=== PATIENT | male | born 1955 | race Two or more races ===

== ENCOUNTER → 2016-08-23 | Outpatient (CLI) | payer BC | END | disposition home or self-care (01) | LOC: Rad HDHVI 10:46 | PROVIDERS: ATTEND Internal Medicine Cardiovascular Disease | DX: R07.9 Chest pain, unspecified (principal) | CPT/HCPCS: 93306 ==

== ENCOUNTER → 2016-08-30 | Outpatient (CLI) | payer BC ==
[~2016-08-30] MED LIST: ADENOSINE 105 MG in GIVE UN-DILUTED 0 ML IV ONE; ADENOSINE 90 MG/30 ML INJ IV ONE
== END | disposition home or self-care (01) ==
LOC: Rad HDHVI 10:25
PROVIDERS: ATTEND Internal Medicine Cardiovascular Disease
DX: I25.10 Atherosclerotic heart disease of native coronary artery without angina pectoris (principal); I10 Essential (primary) hypertension; E78.00 Pure hypercholesterolemia, unspecified; Z82.49 Family history of ischemic heart disease and other diseases of the circulatory system
CPT/HCPCS: 78452; 93005; 96374; 96375; A9500; J0153

== ENCOUNTER 2017-12-30 22:58 | Inpatient (IN) | payer BC ==
[~2017-12-30] VITALS: Ht 175.3 cm; Wt 126.0 kg
[2017-12-30 23:35] LABS: Basophils # (auto) 0 uL; Basophils % (auto) 0.4 % (0.0-2.0); Eosinophils # (auto) 0.3 uL; Eosinophils % (auto) 3.7 % (0.0-7.0); Hematocrit 40.5 % (41.0-53.0); Hemoglobin 13.5 g/dL (13.5-17.5); Lymphocytes # (auto) 1.7 uL; Lymphocytes % (auto) 19.2 % (10.0-50.0); Mean Corpuscular Hemoglobin 30.1 pg (28.0-32.0); Mean Corpuscular Hgb Conc. 33.5 g/dL (32.0-36.0); Monocytes # (auto) 0.6 uL; Monocytes % (auto) 6.1 % (0.0-12.0); Neutrophils # (auto) 6.4 uL; Neutrophils % (auto) 70.6 % (37.0-80.0); Platelet Count (auto) 218 10^3/uL (140-450); Red Cell Distribution Width 15.7 % (11.8-14.3); White Blood Cell 9.1 10^3/uL (4.4-10.8)
[2017-12-30 23:52] LABS: Alanine Aminotransferase 20 U/L (16-61); Albumin 3.2 g/dL (3.4-5.0); Anion Gap 9 (5-15); Aspartate Aminotransferase 14 U/L (15-37); BUN/Creatinine Ratio 16.9; Blood Urea Nitrogen 20 mg/dL (7-18); Calcium 8.1 mg/dL (8.5-10.1); Carbon Dioxide 25 mmol/L (21-32); Chloride 108 mmol/L (98-107); GFR African American 80 mL/min; GFR Non-African American 66 mL/min; Glucose 120 mg/dL (74-106); Magnesium 2.1 mg/dL (1.6-2.6); Potassium 3.7 mmol/L (3.5-5.1); Sodium 142 mmol/L (136-145)
[2017-12-30 23:57] LABS: Alkaline Phosphatase 98 U/L (45-117); Bilirubin, Total 0.3 mg/dL (0.2-1.0); Total Protein 6.9 g/dL (6.4-8.2)
[2017-12-31] MEDS ORDERED: TAMS1CAP25 PO (01:11)
[2017-12-31] MEDS ORDERED: CLOP75TA41 PO (01:11)
[2017-12-31] MEDS ORDERED: ASPI81TA27 PO (01:11)
[2017-12-31] MEDS ORDERED: LISI-646 PO (01:11)
[2017-12-31] MEDS ORDERED: CHOL1TAB22 PO (01:11)
[2017-12-31] MEDS ORDERED: ATOR10TA52 PO (01:11)
[2017-12-31] MEDS ORDERED: METO25TA62 PO (01:11)
[2017-12-31] MEDS ORDERED: ALBUTEROL SULF 2.5 MG/0.5ML(0.5%) NEB SOLN ONE (02:05)
[2017-12-31 02:20] VITALS: BP 121/54
[2017-12-31] MEDS ORDERED: NITROGLYCERIN 0.4 MG SL TAB SL ONE (04:14)
[2017-12-31 04:20] VITALS: BP 121/54
[2017-12-31] MEDS ORDERED: NITROGLYCERIN 0.4 MG SL TAB SL PRN (04:30)
[2017-12-31 09:00] VITALS: BP 118/70
[2017-12-31] MEDS ORDERED: INFLUENZA QUAD 2018-2019 0.5 ML SYRG IM ONE (09:30)
[2017-12-31] MEDS: CHOLECALCIFEROL (VITD3) 1,000 UNIT TAB PO SCH (09:48)
[2017-12-31] MEDS: CLOPIDOGREL BISULFATE 75 MG TAB PO SCH (09:49)
[2017-12-31] MEDS: ASPirin 81 mg TAB PO SCH (09:49)
[2017-12-31] MEDS: LISINOPRIL 20 MG TAB PO SCH (09:49)
[2017-12-31] MEDS: ENOXAPARIN SOD 120 MG/0.8 ML SYRINGE SC SCH ×2 (09:50→21:28)
[2017-12-31] MEDS: METOPROLOL SUCCINATE XL 50 MG TAB PO SCH (09:50)
[2017-12-31 13:00] VITALS: BP 139/88
[2017-12-31] MEDS ORDERED: IOHEXOL 350 MG/ML 100ML IJ ONE (15:25)
[2017-12-31 17:00] VITALS: BP 130/60
[2017-12-31 22:00] VITALS: BP 127/73
[2017-12-31] MEDS ORDERED: ATORVASTATIN 20 MG TAB PO SCH (22:00)
[2017-12-31] MEDS ORDERED: TAMSULOSIN HYDROCHLORIDE 0.4 MG CAP PO SCH (22:00)
[2018-01-01 04:44] VITALS: BP 97/70
[2018-01-01 07:44] VITALS: BP 118/72
[2018-01-01 08:59] VITALS: BP 118/72
[2018-01-01] MEDS: LISINOPRIL 20 MG TAB PO SCH (10:00)
[2018-01-01] MEDS: METOPROLOL SUCCINATE XL 50 MG TAB PO SCH (10:00)
[2018-01-01] MEDS: CHOLECALCIFEROL (VITD3) 1,000 UNIT TAB PO SCH (10:16)
[2018-01-01] MEDS: CLOPIDOGREL BISULFATE 75 MG TAB PO SCH (10:16)
[2018-01-01] MEDS: ENOXAPARIN SOD 120 MG/0.8 ML SYRINGE SC SCH (10:17)
[2018-01-01] MEDS: ASPirin 81 mg TAB PO SCH (10:17)
[2018-01-01 13:00] VITALS: BP 127/80
[2018-01-01 15:13] VITALS: BP 127/80
== END 2018-01-01 16:22 | disposition home or self-care (01) | DRG 303 ==
LOC: ER 22:58 → TELE 22:59 → TELE-WESTW 12-31 02:42
PROVIDERS: ADMIT Internal Medicine Cardiovascular Disease; ATTEND Internal Medicine Cardiovascular Disease
DX: I25.110 Atherosclerotic heart disease of native coronary artery with unstable angina pectoris (principal); E78.00 Pure hypercholesterolemia, unspecified; E78.5 Hyperlipidemia, unspecified; I10 Essential (primary) hypertension; N28.9 Disorder of kidney and ureter, unspecified; Z95.5 Presence of coronary angioplasty implant and graft; Z88.5 Allergy status to narcotic agent; Z91.09 Other allergy status, other than to drugs and biological substances; Z90.49 Acquired absence of other specified parts of digestive tract
CPT/HCPCS: 36415; 71045; 71275; 80053; 83735; 83880; 84484; 85025; 90674; 99291

== ENCOUNTER → 2018-09-04 | Outpatient (CLI) | payer BC ==
[~2018-09-04] VITALS: Ht 165.1 cm; Wt 12.8 kg
[~2018-09-04] MED LIST changes: -ADENOSINE 105 MG in GIVE UN-DILUTED 0 ML IV ONE; -ADENOSINE 90 MG/30 ML INJ IV ONE; +ASPI81TA27 PO; +ATOR10TA52 PO; +CHOL1TAB22 PO; +CLOP75TA41 PO; +LISI-646 PO; +METO25TA62 PO; +TAMS1CAP25 PO
== END | disposition home or self-care (01) ==
LOC: Rad HDHVI 07:49
PROVIDERS: ATTEND Internal Medicine Cardiovascular Disease
DX: I08.1 Rheumatic disorders of both mitral and tricuspid valves (principal); I25.10 Atherosclerotic heart disease of native coronary artery without angina pectoris; I10 Essential (primary) hypertension; I27.20 Pulmonary hypertension, unspecified; E78.5 Hyperlipidemia, unspecified; R06.2 Wheezing; Z95.820 Peripheral vascular angioplasty status with implants and grafts
CPT/HCPCS: 78452; 93017; 93306; 96374; A9500

== ENCOUNTER → 2019-03-12 | Outpatient (CLI) | payer MEDICARE ==
[~2019-03-12] MED LIST changes: +ASPI-404 PO; -ASPI81TA27 PO; +LEVO500T21 PO; -METO25TA62 PO; +METO25TA93 PO; +OME20T PO; +OXYB5TAB61 PO
== END | disposition home or self-care (01) ==
LOC: Rad HDHVI 14:46
PROVIDERS: ATTEND Internal Medicine Cardiovascular Disease
DX: I25.10 Atherosclerotic heart disease of native coronary artery without angina pectoris (principal); R07.89 Other chest pain
CPT/HCPCS: 93306

== ENCOUNTER → 2019-09-11 | Outpatient (CLI) | payer MEDICARE ==
[2019-09-11 12:26] LABS: Basophils # (auto) 0.1 10 ^3/uL (0-0.2); Basophils % (auto) 0.7 % (0.0-2.0); Eosinophils # (auto) 0.3 10 ^3/uL (0-0.8); Eosinophils % (auto) 3.5 % (0.0-7.0); Hematocrit 43.7 % (41.0-53.0); Hemoglobin 14.2 g/dL (13.5-17.5); Lymphocytes # (auto) 1.5 10 ^3/uL (0.4-5.4); Lymphocytes % (auto) 17.8 % (10.0-50.0); Mean Corpuscular Hemoglobin 30.2 pg (28.0-32.0); Mean Corpuscular Hgb Conc. 32.6 g/dL (32.0-36.0); Mean Corpuscular Volume 92.7 fL (80.0-100.0); Monocytes # (auto) 0.6 10 ^3/uL (0-1.3); Monocytes % (auto) 7.5 % (0.0-12.0); Neutrophils # (auto) 5.8 10 ^3/uL (1.6-8.6); Neutrophils % (auto) 70.5 % (37.0-80.0); Nucleated Red Blood Cells % 0.1 %; Platelet Count (auto) 224 10^3/uL (140-450); Red Blood Cells 4.71 10^6/uL (4.5-5.90); Red Cell Distribution Width 17.6 % (11.8-14.3); Urine Blood Negative /uL (Negative); Urine Specific Gravity 1.019 (1.001-1.035); White Blood Cell 8.2 10^3/uL (4.4-10.8)
[2019-09-11 12:42] LABS: Albumin 3.2 g/dL (3.4-5.0); BUN/Creatinine Ratio 21.4; Calcium 8.2 mg/dL (8.5-10.1); Potassium 4.2 mmol/L (3.5-5.1)
[2019-09-11 12:46] LABS: Bilirubin, Total 0.3 mg/dL (0.2-1.0); Total Protein 6.8 g/dL (6.4-8.2)
[2019-09-11 12:47] LABS: Free T4 (Free Thyroxine) 0.89 ng/dL (0.89-1.76); Prostate Specific Antigen 0.89 ng/mL (0.0-4.0)
== END | disposition home or self-care (01) ==
LOC: LAB 08:14
PROVIDERS: ATTEND Internal Medicine Cardiovascular Disease
DX: E03.9 Hypothyroidism, unspecified (principal); K90.9 Intestinal malabsorption, unspecified; C61 Malignant neoplasm of prostate; E29.1 Testicular hypofunction; N39.0 Urinary tract infection, site not specified; D51.9 Vitamin B12 deficiency anemia, unspecified; Z00.00 Encounter for general adult medical examination without abnormal findings; Z79.899 Other long term (current) drug therapy
CPT/HCPCS: 36415; 80053; 80061; 81003; 82306; 82607; 83036; 84153; 84403; 84439; 84443; 85025

== ENCOUNTER → 2019-10-03 | Outpatient (CLI) | payer MEDICARE ==
[~2019-10-03] VITALS: Ht 180.3 cm; Wt 125.2 kg
[~2019-10-03] MED LIST changes: -ASPI-404 PO; +ASPI-543 PO
== END | disposition home or self-care (01) ==
LOC: Rad HDHVI 08:25
PROVIDERS: ATTEND Internal Medicine Cardiovascular Disease
DX: I25.10 Atherosclerotic heart disease of native coronary artery without angina pectoris (principal); I10 Essential (primary) hypertension; E78.00 Pure hypercholesterolemia, unspecified; Z82.49 Family history of ischemic heart disease and other diseases of the circulatory system
CPT/HCPCS: 78452; 93017; 96374; A9500

== ENCOUNTER → 2020-04-27 | Outpatient (CLI) | payer MEDICARE ==
[~2020-04-27] MED LIST changes: -CLOP75TA41 PO; +CLOP75TA70 PO; -LEVO500T21 PO; +LEVO500T31 PO
[2020-04-27 11:31] LABS: Basophils # (auto) 0 10 ^3/uL (0-0.2); Basophils % (auto) 0.5 % (0.0-2.0); Eosinophils # (auto) 0.2 10 ^3/uL (0-0.8); Eosinophils % (auto) 2.4 % (0.0-7.0); Hematocrit 45.6 % (41.0-53.0); Hemoglobin 15.5 g/dL (13.5-17.5); Lymphocytes # (auto) 1.3 10 ^3/uL (0.4-5.4); Lymphocytes % (auto) 15.7 % (10.0-50.0); Mean Corpuscular Hemoglobin 30.9 pg (28.0-32.0); Mean Corpuscular Volume 90.9 fL (80.0-100.0); Monocytes # (auto) 0.5 10 ^3/uL (0-1.3); Monocytes % (auto) 5.7 % (0.0-12.0); Neutrophils # (auto) 6.4 10 ^3/uL (1.6-8.6); Neutrophils % (auto) 75.7 % (37.0-80.0); Nucleated Red Blood Cells % 0.1 %; Platelet Count (auto) 255 10^3/uL (140-450); Red Blood Cells 5.01 10^6/uL (4.5-5.90); Red Cell Distribution Width 15.9 % (11.8-14.3); White Blood Cell 8.5 10^3/uL (4.4-10.8)
[2020-04-27 11:41] LABS: Urine Blood Negative /uL (Negative); Urine Specific Gravity 1.023 (1.001-1.035)
[2020-04-27 11:46] LABS: Potassium 4.1 mmol/L (3.5-5.1)
[2020-04-27 11:49] LABS: Free T4 (Free Thyroxine) 0.94 ng/dL (0.89-1.76); Prostate Specific Antigen 1.62 ng/mL (0.0-4.0)
[2020-04-27 11:57] LABS: Albumin 3.4 g/dL (3.4-5.0); BUN/Creatinine Ratio 17.5; Bilirubin, Total 0.5 mg/dL (0.2-1.0); Calcium 8.6 mg/dL (8.5-10.1); Total Protein 7.6 g/dL (6.4-8.2)
== END | disposition home or self-care (01) ==
LOC: LAB 09:16
PROVIDERS: ATTEND Internal Medicine Cardiovascular Disease
DX: C61 Malignant neoplasm of prostate (principal); D51.3 Other dietary vitamin B12 deficiency anemia; I10 Essential (primary) hypertension; E11.9 Type 2 diabetes mellitus without complications; E55.9 Vitamin D deficiency, unspecified; D64.9 Anemia, unspecified; R00.2 Palpitations; R53.1 Weakness; R30.0 Dysuria
CPT/HCPCS: 36415; 80053; 80061; 81003; 82306; 82607; 83036; 84153; 84403; 84439; 84443; 85025

== ENCOUNTER → 2020-10-19 | Outpatient (CLI) | payer MEDICARE ==
[~2020-10-19] MED LIST changes: -LISI-646 PO; +LISI20TA28 PO
== END | disposition home or self-care (01) ==
LOC: Rad HDHVI 12:54
PROVIDERS: ATTEND Internal Medicine Cardiovascular Disease
DX: R00.2 Palpitations (principal); R06.02 Shortness of breath
CPT/HCPCS: 93306

== ENCOUNTER 2023-03-29 12:52 | Inpatient (IN) | payer MEDICARE ==
[~2023-03-29] VITALS: Ht 180.3 cm; Wt 125.8 kg
[~2023-03-29 12:52] MED LIST changes: -LISI20TA28 PO; +LISI20TA56 PO; +OXYB5TAB10 PO; -OXYB5TAB61 PO
[2023-03-29 14:28] LABS: Basophils # (auto) 0.1 10 ^3/uL (0-0.2); Basophils % (auto) 0.6 % (0.0-2.0); Eosinophils # (auto) 0.1 10 ^3/uL (0-0.8); Hematocrit 45.1 % (41.0-53.0); Hemoglobin 14.7 g/dL (13.5-17.5); Lymphocytes # (auto) 0.9 10 ^3/uL (0.4-5.4); Lymphocytes % (auto) 9.6 % (10.0-50.0); Mean Corpuscular Hemoglobin 29.6 pg (28.0-32.0); Mean Corpuscular Hgb Conc. 32.5 g/dL (32.0-36.0); Monocytes # (auto) 0.7 10 ^3/uL (0-1.3); Monocytes % (auto) 7.3 % (0.0-12.0); Neutrophils # (auto) 7.8 10 ^3/uL (1.6-8.6); Neutrophils % (auto) 81.5 % (37.0-80.0); Nucleated Red Blood Cells % 0.1 %; Red Blood Cells 4.96 10^6/uL (4.5-5.90); White Blood Cell 9.6 10^3/uL (4.4-10.8)
[2023-03-29 14:33] LABS: Alanine Aminotransferase 157 U/L (7-40); Albumin 4.3 g/dL (3.2-4.8); Alkaline Phosphatase 149 U/L (46-116); Anion Gap 7 (5-15); Aspartate Aminotransferase 266 U/L (13-40); BUN/Creatinine Ratio 15.2 (10.0-20.0); Blood Urea Nitrogen 19 mg/dL (9-23); Carbon Dioxide 28 mmol/L (20-30); Chloride 106 mmol/L (98-107); Glucose 116 mg/dL (74-106); Lipase 34 U/L (12-53); Potassium 3.9 mmol/L (3.5-5.1); Sodium 141 mmol/L (136-145)
[2023-03-29 14:34] LABS: Bilirubin, Total 1.8 mg/dL (0.2-1.0); Total Protein 6.7 g/dL (5.7-8.2)
[2023-03-29] MEDS ORDERED: METOCLOPRAMIDE HCL 5MG/ml INJ 2ml VIAL IV ONE (17:00)
[2023-03-29] MEDS ORDERED: KETOROLAC TROMETH 30 MG/ML 1ML VIAL IV ONE (17:00)
[2023-03-29] MEDS ORDERED: IOHEXOL 300 MG/ML 100ML BOTTLE IJ ONE (17:20)
[2023-03-29] MEDS ORDERED: KETOROLAC TROMETH 30 MG/ML 1ML VIAL IV PRN (18:30)
[2023-03-29] MEDS ORDERED: ONDANSETRON HCL 4 MG/2 ML VIAL IV PRN (18:30)
[2023-03-29] MEDS ORDERED: ACETAMINOPHEN 325 MG TAB PO PRN (18:30)
[2023-03-29] MEDS ORDERED: HYDROcodone-ACET 5/325MG TAB PO PRN (18:30)
[2023-03-29 19:43] LABS: Triglycerides 113 mg/dL (< 150)
[2023-03-29 19:44] LABS: LDL Cholesterol 127 mg/dL (< 100)
[2023-03-29 19:45] LABS: Cholesterol 189 mg/dL (< 200); HDL Cholesterol 48 mg/dL (40-59)
[2023-03-29 19:56] VITALS: PULSE 80; RESP 18; O2SAT 92
[2023-03-29 20:37] LABS: Urine Bacteria FEW /hpf (None Seen); Urine Blood Negative /uL (Negative); Urine Clarity Clear (Clear); Urine Color Yellow (Yellow); Urine Mucus FEW (None Seen); Urine Protein, UAD 1+ (Negative); Urine WBC 10 /hpf (0 - 3)
[2023-03-29 20:40] LABS: Urine Specific Gravity > 1.050 (1.001-1.035)
[2023-03-29] MEDS: SODIUM CHLORIDE 0.9% 1,000 ML IV SCH (20:54)
[2023-03-29] MEDS: OXYBUTYNIN CHL 5 MG TAB PO SCH (22:21)
[2023-03-29] MEDS: TAMSULOSIN HYDROCHLORIDE 0.4 MG CAP PO SCH (22:21)
[2023-03-29] MEDS: ATORVASTATIN 20 MG TAB PO SCH (22:21)
[2023-03-30] VITALS (9 sets, daily range): BP systolic 115–130; BP diastolic 62–83; PULSE 72–121; RESP 14–20; TEMP 98–102.1; O2SAT 90–97
[2023-03-30] MEDS ORDERED: TRIA75TA55 PO (01:07)
[2023-03-30] MEDS ORDERED: OMEP20TA85 PO (01:07)
[2023-03-30] MEDS ORDERED: FLUT250M2 INH (01:10)
[2023-03-30] MEDS ORDERED: MONT5CHW12 PO (01:11)
[2023-03-30] MEDS ORDERED: ALBU2TAB11 PO (01:11)
[2023-03-30 05:50] LABS: Basophils # (auto) 0 10 ^3/uL (0-0.2); Basophils % (auto) 0.4 % (0.0-2.0); Eosinophils # (auto) 0.2 10 ^3/uL (0-0.8); Eosinophils % (auto) 2.8 % (0.0-7.0); Hematocrit 42.2 % (41.0-53.0); Hemoglobin 13.9 g/dL (13.5-17.5); Lymphocytes # (auto) 0.8 10 ^3/uL (0.4-5.4); Lymphocytes % (auto) 10.8 % (10.0-50.0); Mean Corpuscular Hgb Conc. 32.9 g/dL (32.0-36.0); Monocytes # (auto) 0.6 10 ^3/uL (0-1.3); Monocytes % (auto) 8.9 % (0.0-12.0); Neutrophils # (auto) 5.4 10 ^3/uL (1.6-8.6); Neutrophils % (auto) 77.1 % (37.0-80.0); Red Blood Cells 4.64 10^6/uL (4.5-5.90); Red Cell Distribution Width 15.6 % (11.8-14.3)
[2023-03-30 06:05] LABS: Alanine Aminotransferase 275 U/L (7-40); Alkaline Phosphatase 153 U/L (46-116); Anion Gap 7 (5-15); BUN/Creatinine Ratio 10.4 (10.0-20.0); Blood Urea Nitrogen 13 mg/dL (9-23); Calcium 8.8 mg/dL (8.7-10.4); Carbon Dioxide 27 mmol/L (20-30); Chloride 106 mmol/L (98-107); Glucose 102 mg/dL (74-106); Potassium 3.7 mmol/L (3.5-5.1); Sodium 140 mmol/L (136-145)
[2023-03-30 06:06] LABS: Aspartate Aminotransferase 334 U/L (13-40); Bilirubin, Total 4.1 mg/dL (0.2-1.0); Total Protein 6.4 g/dL (5.7-8.2)
[2023-03-30 09:22] LABS: Hepatitis B Surface Antigen Negative (Negative)
[2023-03-30 09:36] LABS: Hepatitis B Surface Antigen Negative (Negative)
[2023-03-30 09:43] LABS: Hepatitis A Ab IgM Negative; Hepatitis B Core IgM Negative
[2023-03-30 09:44] LABS: Hepatitis C Antibody Negative (Negative)
[2023-03-30 09:57] LABS: Hepatitis C Antibody Negative (Negative)
[2023-03-30] MEDS ORDERED: CLOPIDOGREL BISULFATE 75 MG TAB PO SCH (10:00)
[2023-03-30] MEDS: CHOLECALCIFEROL (VITD3) 1,000UNIT=25mCg TAB PO SCH (10:00)
[2023-03-30] MEDS ORDERED: LORazepam 2MG/ML-1ML VIAL IV ONE (13:00)
[2023-03-30] MEDS: OXYBUTYNIN CHL 5 MG TAB PO SCH ×2 (13:01→20:58)
[2023-03-30] MEDS: ASPirin-EC 81 mg tab PO SCH (13:01)
[2023-03-30] MEDS: METOPROLOL SUCCINATE XL 50 MG TAB PO SCH (13:02)
[2023-03-30] MEDS: LISINOPRIL 20 MG TAB PO SCH (13:03)
[2023-03-30] MEDS: cefTRIAXone 1GM/50ML D5W 50 ML IV SCH (13:03)
[2023-03-30] MEDS: ENOXAPARIN SOD 40 MG/0.4 ML SYRINGE SC SCH (13:03)
[2023-03-30] MEDS: OMEPRAZOLE-SOD BICARB 20 MG POWDER PO SCH (13:06)
[2023-03-30] MEDS: SODIUM CHLORIDE 0.9% 1,000 ML IV SCH (13:19)
[2023-03-30] MEDS: TAMSULOSIN HYDROCHLORIDE 0.4 MG CAP PO SCH (20:58)
[2023-03-30] MEDS: ATORVASTATIN 20 MG TAB PO SCH (20:59)
[2023-03-31] VITALS (7 sets, daily range): BP systolic 98–149; BP diastolic 51–83; PULSE 85–94; RESP 17–20; TEMP 98.6–99.3; O2SAT 92–96
[2023-03-31] MEDS: SODIUM CHLORIDE 0.9% 1,000 ML IV SCH (03:50)
[2023-03-31 05:25] LABS: Basophils # (auto) 0 10 ^3/uL (0-0.2); Basophils % (auto) 0.6 % (0.0-2.0); Eosinophils # (auto) 0 10 ^3/uL (0-0.8); Eosinophils % (auto) 0.3 % (0.0-7.0); Hematocrit 38.6 % (41.0-53.0); Hemoglobin 12.7 g/dL (13.5-17.5); Lymphocytes # (auto) 0.5 10 ^3/uL (0.4-5.4); Lymphocytes % (auto) 11.4 % (10.0-50.0); Mean Corpuscular Hemoglobin 29.5 pg (28.0-32.0); Mean Corpuscular Hgb Conc. 32.9 g/dL (32.0-36.0); Mean Corpuscular Volume 89.7 fL (80.0-100.0); Monocytes # (auto) 0.5 10 ^3/uL (0-1.3); Monocytes % (auto) 10.6 % (0.0-12.0); Neutrophils # (auto) 3.5 10 ^3/uL (1.6-8.6); Neutrophils % (auto) 77.1 % (37.0-80.0); Nucleated Red Blood Cells % 0.1 %; Red Blood Cells 4.31 10^6/uL (4.5-5.90); Red Cell Distribution Width 15.7 % (11.8-14.3); White Blood Cell 4.5 10^3/uL (4.4-10.8)
[2023-03-31 05:41] LABS: INR 1.13 (0.9-1.15); Partial Thromboplastin Time 34.1 SEC (24.5-34.5); Prothrombin Time 11.8 sec (9.3-11.8)
[2023-03-31 05:57] LABS: Alanine Aminotransferase 253 U/L (7-40); Albumin 3.6 g/dL (3.2-4.8); Alkaline Phosphatase 138 U/L (46-116); Anion Gap 7 (5-15); Aspartate Aminotransferase 179 U/L (13-40); BUN/Creatinine Ratio 10.6 (10.0-20.0); Bilirubin, Total 3.2 mg/dL (0.2-1.0); Blood Urea Nitrogen 13 mg/dL (9-23); Calcium 8.5 mg/dL (8.5-10.1); Carbon Dioxide 25 mmol/L (20-30); Chloride 107 mmol/L (98-107); Glucose 101 mg/dL (74-106); Potassium 3.8 mmol/L (3.5-5.1); Sodium 139 mmol/L (136-145); Total Protein 5.9 g/dL (5.7-8.2)
[2023-03-31] MEDS: LISINOPRIL 20 MG TAB PO SCH (10:00)
[2023-03-31] MEDS: CHOLECALCIFEROL (VITD3) 1,000UNIT=25mCg TAB PO SCH (10:00)
[2023-03-31] MEDS: METOPROLOL SUCCINATE XL 50 MG TAB PO SCH (10:00)
[2023-03-31] MEDS: ENOXAPARIN SOD 40 MG/0.4 ML SYRINGE SC SCH (10:10)
[2023-03-31] MEDS: ASPirin-EC 81 mg tab PO SCH (10:10)
[2023-03-31] MEDS: cefTRIAXone 1GM/50ML D5W 50 ML IV SCH (10:10)
[2023-03-31] MEDS: OXYBUTYNIN CHL 5 MG TAB PO SCH ×2 (10:11→21:13)
[2023-03-31] MEDS: D5W/SOD CHL 0.45%/KCL 20MEQ 1,000 ML IV SCH ×2 (10:30→20:30)
[2023-03-31] MEDS: OMEPRAZOLE-SOD BICARB 20 MG POWDER PO SCH (15:03)
[2023-03-31] MEDS: metroNIDAZOLE 500MG/100ML 100 ML IV SCH ×2 (15:04→21:14)
[2023-03-31] MEDS: ATORVASTATIN 20 MG TAB PO SCH (21:13)
[2023-03-31] MEDS: TAMSULOSIN HYDROCHLORIDE 0.4 MG CAP PO SCH (21:13)
[2023-04-01] VITALS (7 sets, daily range): BP systolic 112–140; BP diastolic 53–95; PULSE 72–98; RESP 16–20; TEMP 98–100.1; O2SAT 93–94
[2023-04-01] MEDS: metroNIDAZOLE 500MG/100ML 100 ML IV SCH ×3 (05:10→21:13)
[2023-04-01] MEDS: D5W/SOD CHL 0.45%/KCL 20MEQ 1,000 ML IV SCH ×2 (06:30→16:19)
[2023-04-01 06:48] LABS: Basophils # (auto) 0 10 ^3/uL (0-0.2); Basophils % (auto) 0.5 % (0.0-2.0); Eosinophils # (auto) 0.1 10 ^3/uL (0-0.8); Eosinophils % (auto) 2.3 % (0.0-7.0); Hematocrit 38.2 % (41.0-53.0); Hemoglobin 12.7 g/dL (13.5-17.5); Lymphocytes # (auto) 0.6 10 ^3/uL (0.4-5.4); Lymphocytes % (auto) 12.2 % (10.0-50.0); Mean Corpuscular Hemoglobin 29.5 pg (28.0-32.0); Mean Corpuscular Hgb Conc. 33.2 g/dL (32.0-36.0); Mean Corpuscular Volume 88.9 fL (80.0-100.0); Monocytes # (auto) 0.6 10 ^3/uL (0-1.3); Monocytes % (auto) 12.8 % (0.0-12.0); Neutrophils # (auto) 3.6 10 ^3/uL (1.6-8.6); Neutrophils % (auto) 72.2 % (37.0-80.0); Red Cell Distribution Width 15.2 % (11.8-14.3)
[2023-04-01 07:06] LABS: Alanine Aminotransferase 192 U/L (7-40); Albumin 3.6 g/dL (3.2-4.8); Alkaline Phosphatase 133 U/L (46-116); Anion Gap 8 (5-15); Aspartate Aminotransferase 117 U/L (13-40); BUN/Creatinine Ratio 9.8 (10.0-20.0); Bilirubin, Total 2.1 mg/dL (0.2-1.0); Blood Urea Nitrogen 11 mg/dL (9-23); Calcium 8.4 mg/dL (8.7-10.4); Carbon Dioxide 24 mmol/L (20-30); Chloride 107 mmol/L (98-107); Glucose 87 mg/dL (74-106); Potassium 3.9 mmol/L (3.5-5.1); Sodium 139 mmol/L (136-145)
[2023-04-01] MEDS: cefTRIAXone 1GM/50ML D5W 50 ML IV SCH (09:58)
[2023-04-01] MEDS: CHOLECALCIFEROL (VITD3) 1,000UNIT=25mCg TAB PO SCH (10:06)
[2023-04-01] MEDS: METOPROLOL SUCCINATE XL 50 MG TAB PO SCH (10:07)
[2023-04-01] MEDS: ASPirin-EC 81 mg tab PO SCH (10:08)
[2023-04-01] MEDS: OXYBUTYNIN CHL 5 MG TAB PO SCH ×2 (10:08→21:13)
[2023-04-01] MEDS: LISINOPRIL 20 MG TAB PO SCH (10:08)
[2023-04-01] MEDS: ENOXAPARIN SOD 40 MG/0.4 ML SYRINGE SC SCH (10:09)
[2023-04-01] MEDS: OMEPRAZOLE-SOD BICARB 20 MG POWDER PO SCH (10:17)
[2023-04-01] MEDS: ATORVASTATIN 20 MG TAB PO SCH (21:13)
[2023-04-01] MEDS: TAMSULOSIN HYDROCHLORIDE 0.4 MG CAP PO SCH (21:13)
[2023-04-02] MEDS: D5W/SOD CHL 0.45%/KCL 20MEQ 1,000 ML IV SCH ×2 (02:30→12:30)
[2023-04-02 05:00] VITALS: BP 140/79; PULSE 68; RESP 20; TEMP 99.1; O2SAT 96
[2023-04-02] MEDS: metroNIDAZOLE 500MG/100ML 100 ML IV SCH (05:06)
[2023-04-02 08:00] VITALS: BP 141/71; PULSE 61; RESP 19; TEMP 98; O2SAT 94
[2023-04-02 09:00] VITALS: BP 141/71; PULSE 61; RESP 19; TEMP 98; O2SAT 94
[2023-04-02] MEDS: ENOXAPARIN SOD 40 MG/0.4 ML SYRINGE SC SCH (09:23)
[2023-04-02] MEDS: LISINOPRIL 20 MG TAB PO SCH (09:24)
[2023-04-02] MEDS: ASPirin-EC 81 mg tab PO SCH (09:24)
[2023-04-02] MEDS: OXYBUTYNIN CHL 5 MG TAB PO SCH (09:25)
[2023-04-02] MEDS: CHOLECALCIFEROL (VITD3) 1,000UNIT=25mCg TAB PO SCH (09:25)
[2023-04-02] MEDS: METOPROLOL SUCCINATE XL 50 MG TAB PO SCH (09:25)
[2023-04-02] MEDS ORDERED: PANTOPRAZOLE 40 MG TAB PO SCH (10:00)
[2023-04-02] MEDS: cefTRIAXone 1GM/50ML D5W 50 ML IV SCH (10:00)
[2023-04-02 11:35] VITALS: BP 141/71; PULSE 61; RESP 19; TEMP 98; O2SAT 94
[2023-04-02 12:55] VITALS: BP 120/62; PULSE 70; RESP 18; TEMP 98; O2SAT 94
[2023-04-05] MEDS ORDERED: MAALOX PLUS or MAALOX 30 ML PO PRN (21:00)
[2023-04-05] MEDS ORDERED: DOCUSATE SOD 100 MG CAP PO PRN (21:00)
[2023-04-05] MEDS ORDERED: SODIUM CHLORIDE 0.9% 1,000 ML IV SCH (21:00)
[2023-04-05] MEDS ORDERED: LABETALOL HCL 5 MG/ML 4ML SYRINGE IV PRN (21:00)
[2023-04-05] MEDS ORDERED: ONDANSETRON HCL 4 MG/2 ML VIAL IV PRN (21:00)
[2023-04-05] MEDS ORDERED: KETOROLAC TROMETH 30 MG/ML 1ML VIAL IV PRN (21:00)
[2023-04-05] MEDS ORDERED: ACETAMINOPHEN 325 MG TAB PO PRN (21:00)
[2023-04-05] MEDS ORDERED: MONTELUKAST SODIUM 10 MG TAB PO SCH (22:00)
[2023-04-05] MEDS ORDERED: ATORVASTATIN 20 MG TAB PO SCH (22:00)
[2023-04-05] MEDS ORDERED: ALBU108A5 INH (22:51)
[2023-04-05] MEDS ORDERED: MONT-8 PO (22:51)
[2023-04-05] MEDS ORDERED: TEST30SO3 TOP (22:51)
[2023-04-05] MEDS ORDERED: PRED10TA (22:51)
[2023-04-06] MEDS ORDERED: METOPROLOL SUCCINATE XL 50 MG TAB PO SCH (10:00)
[2023-04-06] MEDS ORDERED: LISINOPRIL 20 MG TAB PO SCH (10:00)
[2023-04-10] MEDS ORDERED: AUG875T PO (13:06)
[2023-04-11] MEDS ORDERED: HYDR-4902 PO (09:58)
== END 2023-04-02 13:53 | disposition short-term general hospital (02) | DRG 446 ==
LOC: ER 12:52 → OVERFLOW 18:33 → CENTRAL 23:58
PROVIDERS: ADMIT Nurse Practitioner Family; ATTEND Nurse Practitioner Acute Care
DX: K80.50 Calculus of bile duct without cholangitis or cholecystitis without obstruction (principal); I10 Essential (primary) hypertension; E66.01 Morbid (severe) obesity due to excess calories; E78.5 Hyperlipidemia, unspecified; I25.119 Atherosclerotic heart disease of native coronary artery with unspecified angina pectoris; R74.8 Abnormal levels of other serum enzymes; R74.01 Elevation of levels of liver transaminase levels; Z68.38 Body mass index [BMI] 38.0-38.9, adult; Z88.5 Allergy status to narcotic agent; Z90.49 Acquired absence of other specified parts of digestive tract; Z91.048 Other nonmedicinal substance allergy status; Z95.5 Presence of coronary angioplasty implant and graft
CPT/HCPCS: 36415; 71046; 74177; 74181; 76705; 78226; 80053; 80061; 80074; 81001; 82248; 83690; 83735; 84443; 85025; 85610; 85730; 86803; 87040; 87077; 87186; 87340; 93005; 96374; 96375; G0378; J1885; J3490

== ENCOUNTER 2023-07-25 04:41 | Inpatient (IN) | payer MEDICARE ==
[~2023-07-25] VITALS: Ht 180.3 cm; Wt 136.1 kg
[~2023-07-25 04:41] MED LIST changes: +ALBU108A5 INH; +ALBU2TAB11 PO; +AUG875T PO; +FLUT250M2 INH; +HYDR-4902 PO; -LEVO500T31 PO; +MONT-8 PO; +MONT5CHW12 PO; -OME20T PO; +OMEP20TA85 PO; -OXYB5TAB10 PO; +PRED10TA; -TAMS1CAP25 PO; +TEST30SO3 TOP; +TRIA75TA55 PO
[2023-07-25 05:33] LABS: Basophils # (auto) 0.1 10 ^3/uL (0-0.2); Basophils % (auto) 0.4 % (0.0-2.0); Eosinophils # (auto) 0 10 ^3/uL (0-0.8); Eosinophils % (auto) 0.3 % (0.0-7.0); Hematocrit 43.2 % (41.0-53.0); Lymphocytes # (auto) 1.8 10 ^3/uL (0.4-5.4); Lymphocytes % (auto) 12.2 % (10.0-50.0); Mean Corpuscular Hemoglobin 28.2 pg (28.0-32.0); Mean Corpuscular Hgb Conc. 32.5 g/dL (32.0-36.0); Mean Corpuscular Volume 86.7 fL (80.0-100.0); Monocytes # (auto) 0.9 10 ^3/uL (0-1.3); Monocytes % (auto) 6.1 % (0.0-12.0); Neutrophils # (auto) 12.1 10 ^3/uL (1.6-8.6); Red Blood Cells 4.98 10^6/uL (4.5-5.90); Red Cell Distribution Width 16.5 % (11.8-14.3); White Blood Cell 14.9 10^3/uL (4.4-10.8)
[2023-07-25 06:03] LABS: Alanine Aminotransferase 18 U/L (7-40); Albumin 4.1 g/dL (3.2-4.8); Alkaline Phosphatase 114 U/L (46-116); Anion Gap 7 (5-15); Aspartate Aminotransferase 15 U/L (13-40); BUN/Creatinine Ratio 14.6 (10.0-20.0); Bilirubin, Total 0.3 mg/dL (0.2-1.0); Blood Urea Nitrogen 19 mg/dL (9-23); Carbon Dioxide 24 mmol/L (20-30); Chloride 110 mmol/L (98-107); Glucose 122 mg/dL (74-106); Potassium 3.9 mmol/L (3.5-5.1); Sodium 141 mmol/L (136-145); Total Protein 6.8 g/dL (5.7-8.2)
[2023-07-25 06:16] LABS: Urine Bacteria None Seen /hpf (None Seen)
[2023-07-25 06:30] VITALS: PULSE 60; RESP 20; O2SAT 96
[2023-07-25 06:33] LABS: Urine Blood 3+ /uL (Negative); Urine Budding Yeast OCCASIONAL /hpf (None Seen); Urine Clarity Turbid (Clear); Urine Color Light-Orange (Yellow); Urine Mucus FEW (None Seen); Urine Protein, UAD 1+ (Negative); Urine Urobilinogen Normal (Negative); Urine WBC 31 /hpf (0 - 3)
[2023-07-25] MEDS: ONDANSETRON HCL 4 MG/2 ML VIAL IV ONE ×2 (07:39→08:00)
[2023-07-25] MEDS: KETOROLAC TROMETH 30 MG/ML 1ML VIAL IV ONE (07:39)
[2023-07-25 07:50] VITALS: PULSE 76; RESP 18; O2SAT 96
[2023-07-25] MEDS: TAMSULOSIN HYDROCHLORIDE 0.4 MG CAP PO ONE (08:27)
[2023-07-25] MEDS: cefTRIAXone 1GM/50ML D5W 50 ML IV ONE ×2 (08:28→08:30)
[2023-07-25] MEDS: cloNIDine HCL 0.1 MG TAB PO ONE (08:28)
[2023-07-25] MEDS: MORPHINE SULFATE 4 MG/ML SYR/VIAL IV ONE (08:29)
[2023-07-25] MEDS: SODIUM CHLORIDE 0.9% 1,000 ML IV ONE ×2 (08:29→08:30)
[2023-07-25] MEDS ORDERED: ONDANSETRON HCL 4 MG/2 ML VIAL IV PRN (08:30)
[2023-07-25] MEDS: SODIUM CHLORIDE 0.9% 1,000 ML IV SCH (08:30)
[2023-07-25] MEDS ORDERED: DOCUSATE SOD 100 MG CAP PO PRN (08:30)
[2023-07-25] MEDS ORDERED: MORPHINE SULFATE INJ 2 MG/ml SYRG IV PRN (08:30)
[2023-07-25] MEDS: cefTRIAXone 1GM/50ML D5W 50 ML IV SCH (09:00)
[2023-07-25] MEDS ORDERED: ALBUTEROL SULFATE 2 MG PO PRN (09:45)
[2023-07-25] MEDS: ASPirin-EC 81 mg tab PO SCH (10:00)
[2023-07-25] MEDS: CLOPIDOGREL BISULFATE 75 MG TAB PO SCH (10:00)
[2023-07-25] MEDS: MONTELUKAST SODIUM 10 MG TAB PO SCH (10:00)
[2023-07-25] MEDS: LISINOPRIL 20 MG TAB PO SCH (10:00)
[2023-07-25] MEDS: KETOROLAC TROMETH 30 MG/ML 1ML VIAL IV SCH (12:00)
[2023-07-25 14:40] VITALS: BP 120/71; PULSE 51; RESP 18; TEMP 97.3; O2SAT 95
[2023-07-25 17:00] VITALS: BP 100/63; PULSE 59; RESP 17; TEMP 98.2; O2SAT 96
[2023-07-25] MEDS: TAMSULOSIN HYDROCHLORIDE 0.4 MG CAP PO SCH (17:46)
[2023-07-25 20:00] VITALS: RESP 20; O2SAT 96
[2023-07-25] MEDS: ATORVASTATIN 20 MG TAB PO SCH (21:10)
[2023-07-25 21:46] VITALS: BP 106/64; PULSE 56; RESP 18; TEMP 97.3; O2SAT 94
[2023-07-26 01:00] VITALS: BP 109/60; PULSE 51; RESP 18; TEMP 97.4; O2SAT 94
[2023-07-26 05:00] VITALS: BP 112/61; PULSE 62; RESP 18; TEMP 97.6; O2SAT 94
[2023-07-26 06:43] LABS: Alanine Aminotransferase 15 U/L (7-40); Albumin 3.3 g/dL (3.2-4.8); Alkaline Phosphatase 91 U/L (46-116); Anion Gap 5 (5-15); Aspartate Aminotransferase 11 U/L (13-40); BUN/Creatinine Ratio 15.3 (10.0-20.0); Bilirubin, Total 0.4 mg/dL (0.2-1.0); Blood Urea Nitrogen 17 mg/dL (9-23); Calcium 8.3 mg/dL (8.7-10.4); Carbon Dioxide 26 mmol/L (20-30); Chloride 110 mmol/L (98-107); Glucose 90 mg/dL (74-106); Potassium 4.3 mmol/L (3.5-5.1); Sodium 141 mmol/L (136-145); Total Protein 5.4 g/dL (5.7-8.2)
[2023-07-26 06:59] LABS: Basophils # (auto) 0 10 ^3/uL (0-0.2); Basophils % (auto) 0.3 % (0.0-2.0); Eosinophils # (auto) 0.3 10 ^3/uL (0-0.8); Eosinophils % (auto) 2.9 % (0.0-7.0); Hematocrit 36.5 % (41.0-53.0); Hemoglobin 11.9 g/dL (13.5-17.5); Lymphocytes # (auto) 1.3 10 ^3/uL (0.4-5.4); Lymphocytes % (auto) 14.7 % (10.0-50.0); Mean Corpuscular Hemoglobin 28.3 pg (28.0-32.0); Mean Corpuscular Hgb Conc. 32.5 g/dL (32.0-36.0); Mean Corpuscular Volume 87.1 fL (80.0-100.0); Monocytes # (auto) 0.6 10 ^3/uL (0-1.3); Monocytes % (auto) 6.5 % (0.0-12.0); Neutrophils # (auto) 6.6 10 ^3/uL (1.6-8.6); Neutrophils % (auto) 75.6 % (37.0-80.0); Nucleated Red Blood Cells % 0.1 %; Red Blood Cells 4.19 10^6/uL (4.5-5.90); Red Cell Distribution Width 16.8 % (11.8-14.3); White Blood Cell 8.7 10^3/uL (4.4-10.8)
[2023-07-26] MEDS: SODIUM CHLORIDE 0.9% 1,000 ML IV SCH (07:45)
[2023-07-26 09:13] VITALS: BP 123/68; PULSE 59; RESP 21; TEMP 98.1; O2SAT 95
[2023-07-26] MEDS: METOPROLOL SUCCINATE XL 50 MG TAB PO SCH (09:35)
[2023-07-26] MEDS: PANTOPRAZOLE 40 MG TAB PO SCH (09:36)
[2023-07-26 13:07] VITALS: BP 117/71; PULSE 57; RESP 21; TEMP 98.4; O2SAT 94
== END 2023-07-26 15:29 | disposition home or self-care (01) | DRG 872 ==
LOC: ER 04:41 → OVERFLOW 09:39 → CENTRAL 14:50
PROVIDERS: ADMIT Nurse Practitioner Family; ATTEND Family Medicine
DX: A41.9 Sepsis, unspecified organism (principal); N13.6 Pyonephrosis; I10 Essential (primary) hypertension; I25.10 Atherosclerotic heart disease of native coronary artery without angina pectoris; E78.00 Pure hypercholesterolemia, unspecified; N20.0 Calculus of kidney; Z88.5 Allergy status to narcotic agent; Z90.49 Acquired absence of other specified parts of digestive tract; I25.2 Old myocardial infarction; Z79.02 Long term (current) use of antithrombotics/antiplatelets; Z79.51 Long term (current) use of inhaled steroids; Z91.048 Other nonmedicinal substance allergy status; Z95.5 Presence of coronary angioplasty implant and graft; Z79.899 Other long term (current) drug therapy; Z83.3 Family history of diabetes mellitus; Z82.3 Family history of stroke; Z82.1 Family history of blindness and visual loss; Z84.89 Family history of other specified conditions
CPT/HCPCS: 36415; 74176; 80053; 81001; 85025; 87086; 96361; 96365; 96375; G0378; J1885; J2405

== ENCOUNTER → 2023-07-31 | Outpatient (CLI) | payer MEDICARE ==
[~2023-07-31] VITALS: Ht 180.3 cm; Wt 127.0 kg
== END | disposition home or self-care (01) ==
LOC: Rad HDHVI 08:30
PROVIDERS: ATTEND Internal Medicine Cardiovascular Disease
DX: I25.10 Atherosclerotic heart disease of native coronary artery without angina pectoris (principal); I10 Essential (primary) hypertension; E78.5 Hyperlipidemia, unspecified; Z82.49 Family history of ischemic heart disease and other diseases of the circulatory system
CPT/HCPCS: 78452; 93017; 96374; A9500

== ENCOUNTER 2023-08-26 05:32 | Inpatient (IN) | payer MEDICARE ==
[~2023-08-26] VITALS: Ht 180.3 cm; Wt 132.0 kg
[2023-08-26 06:53] LABS: Basophils # (auto) 0.1 10 ^3/uL (0-0.2); Basophils % (auto) 0.6 % (0.0-2.0); Eosinophils # (auto) 0.2 10 ^3/uL (0-0.8); Eosinophils % (auto) 1.7 % (0.0-7.0); Hematocrit 40.1 % (41.0-53.0); Hemoglobin 13.3 g/dL (13.5-17.5); Lymphocytes # (auto) 1.7 10 ^3/uL (0.4-5.4); Lymphocytes % (auto) 14.6 % (10.0-50.0); Mean Corpuscular Hgb Conc. 33.3 g/dL (32.0-36.0); Mean Corpuscular Volume 87.1 fL (80.0-100.0); Monocytes # (auto) 0.9 10 ^3/uL (0-1.3); Monocytes % (auto) 7.4 % (0.0-12.0); Neutrophils # (auto) 9.1 10 ^3/uL (1.6-8.6); Neutrophils % (auto) 75.7 % (37.0-80.0)
[2023-08-26 07:03] LABS: Anion Gap 7 (5-15); Calcium 9.1 mg/dL (8.7-10.4); Carbon Dioxide 22 mmol/L (20-30); Chloride 107 mmol/L (98-107); Potassium 3.8 mmol/L (3.5-5.1); Sodium 136 mmol/L (136-145)
[2023-08-26 07:09] LABS: BUN/Creatinine Ratio 15.3 (10.0-20.0); Blood Urea Nitrogen 18 mg/dL (9-23); Glucose 100 mg/dL (74-106)
[2023-08-26 07:33] LABS: Urine Bacteria FEW /hpf (None Seen); Urine Blood 3+ /uL (Negative); Urine Clarity Clear (Clear); Urine Color Colorless (Yellow); Urine Protein, UAD Negative (Negative); Urine Specific Gravity 1.003 (1.001-1.035); Urine Urobilinogen Normal (Negative); Urine WBC <1 /hpf (0 - 3); Urine pH 5.5 (5.0-9.0)
[2023-08-26] MEDS: cefTRIAXone 1GM/50ML D5W 50 ML IV ONE (08:03)
[2023-08-26 08:06] VITALS: PULSE 58; RESP 16; O2SAT 98
[2023-08-26] MEDS ORDERED: ACETAMINOPHEN 325 MG TAB PO PRN (09:15)
[2023-08-26] MEDS ORDERED: HYDROcodone-ACET 5/325MG TAB PO PRN (09:15)
[2023-08-26] MEDS: SODIUM CHLORIDE 0.9% 1,000 ML IV SCH (09:34)
[2023-08-26 09:50] LABS: LDL Cholesterol 105 mg/dL (< 100); Triglycerides 90 mg/dL (< 150)
[2023-08-26 09:51] LABS: HDL Cholesterol 44 mg/dL (40-59)
[2023-08-26 09:52] LABS: Cholesterol 160 mg/dL (< 200)
[2023-08-26] MEDS ORDERED: PATIENTS OWN MEDICATION (Montelukast Sodium (Singulair) 10 MG) PO SCH (10:00)
[2023-08-26] MEDS ORDERED: HYDROCHLOROTHIAZ PO SCH ×2 (10:00)
[2023-08-26] MEDS ORDERED: TRIAMTERENE PO SCH ×2 (10:00)
[2023-08-26] MEDS: PANTOPRAZOLE 40 MG TAB PO SCH (10:24)
[2023-08-26] MEDS: LISINOPRIL 20 MG TAB PO SCH (10:27)
[2023-08-26] MEDS: CHOLECALCIFEROL (VITD3) 1,000UNIT=25mCg TAB PO SCH (10:27)
[2023-08-26] MEDS: METOPROLOL SUCCINATE XL 50 MG TAB PO SCH (10:28)
[2023-08-26 17:54] VITALS: PULSE 75; RESP 16
[2023-08-26] MEDS: ATORVASTATIN 20 MG TAB PO SCH (19:41)
[2023-08-26] MEDS: MONTELUKAST SODIUM 10 MG TAB PO SCH (19:42)
[2023-08-26 21:00] VITALS: BP 128/52; PULSE 60; RESP 19; TEMP 97.9; O2SAT 94
[2023-08-27] VITALS (7 sets, daily range): BP systolic 121–145; BP diastolic 58–80; PULSE 58–81; RESP 18–20; TEMP 97.3–98.6; O2SAT 94–100
[2023-08-27 06:47] LABS: Basophils # (auto) 0 10 ^3/uL (0-0.2); Basophils % (auto) 0.5 % (0.0-2.0); Eosinophils # (auto) 0.2 10 ^3/uL (0-0.8); Eosinophils % (auto) 1.9 % (0.0-7.0); Hematocrit 37.3 % (41.0-53.0); Hemoglobin 12.2 g/dL (13.5-17.5); Lymphocytes # (auto) 1.2 10 ^3/uL (0.4-5.4); Lymphocytes % (auto) 14.3 % (10.0-50.0); Mean Corpuscular Hemoglobin 28.7 pg (28.0-32.0); Mean Corpuscular Hgb Conc. 32.8 g/dL (32.0-36.0); Mean Corpuscular Volume 87.5 fL (80.0-100.0); Monocytes # (auto) 0.7 10 ^3/uL (0-1.3); Monocytes % (auto) 7.9 % (0.0-12.0); Neutrophils # (auto) 6.6 10 ^3/uL (1.6-8.6); Neutrophils % (auto) 75.4 % (37.0-80.0); Nucleated Red Blood Cells % 0.1 %; Red Blood Cells 4.26 10^6/uL (4.5-5.90); Red Cell Distribution Width 16.5 % (11.8-14.3); White Blood Cell 8.7 10^3/uL (4.4-10.8)
[2023-08-27 07:13] LABS: Alanine Aminotransferase 18 U/L (7-40); Albumin 3.5 g/dL (3.2-4.8); Alkaline Phosphatase 103 U/L (46-116); Anion Gap 4 (5-15); Aspartate Aminotransferase 10 U/L (13-40); BUN/Creatinine Ratio 16.4 (10.0-20.0); Blood Urea Nitrogen 20 mg/dL (9-23); Calcium 8.9 mg/dL (8.7-10.4); Carbon Dioxide 26 mmol/L (20-30); Chloride 111 mmol/L (98-107); Potassium 4.2 mmol/L (3.5-5.1); Sodium 141 mmol/L (136-145)
[2023-08-27 07:14] LABS: Bilirubin, Total 0.3 mg/dL (0.2-1.0); Total Protein 5.8 g/dL (5.7-8.2)
[2023-08-27 07:42] LABS: Glucose 100 mg/dL (74-106)
[2023-08-27] MEDS: cefTRIAXone 1GM/50ML D5W 50 ML IV SCH (09:06)
[2023-08-28 01:00] VITALS: BP 120/66; PULSE 64; RESP 19; TEMP 98.3; O2SAT 97
[2023-08-28 05:00] VITALS: BP 153/81; PULSE 60; RESP 19; TEMP 97.8; O2SAT 95
[2023-08-28 06:20] LABS: Hematocrit 38.2 % (41.0-53.0); Hemoglobin 12.8 g/dL (13.5-17.5)
[2023-08-28 06:26] LABS: Anion Gap 4 (5-15); Carbon Dioxide 27 mmol/L (20-30); Chloride 110 mmol/L (98-107); Potassium 3.9 mmol/L (3.5-5.1); Sodium 141 mmol/L (136-145)
[2023-08-28 06:27] LABS: Calcium 8.9 mg/dL (8.7-10.4)
[2023-08-28 06:32] LABS: BUN/Creatinine Ratio 16.4 (10.0-20.0); Blood Urea Nitrogen 19 mg/dL (9-23); Glucose 96 mg/dL (74-106)
[2023-08-28 09:00] VITALS: BP 128/70; PULSE 63; RESP 17; TEMP 97.8; O2SAT 97
[2023-08-28] MEDS ORDERED: CIP500T PO (12:49)
[2023-08-28 13:00] VITALS: BP 149/83; PULSE 64; RESP 16; TEMP 97.6; O2SAT 94
== END 2023-08-28 13:30 | disposition home or self-care (01) | DRG 690 ==
LOC: ER 05:32 → OVERFLOW 09:04 → WEST WING 15:55
PROVIDERS: ADMIT Nurse Practitioner Family; ATTEND Nurse Practitioner Acute Care
DX: N30.01 Acute cystitis with hematuria (principal); Z68.41 Body mass index [BMI] 40.0-44.9, adult; R65.10 Systemic inflammatory response syndrome (SIRS) of non-infectious origin without acute organ dysfunction; I10 Essential (primary) hypertension; E66.01 Morbid (severe) obesity due to excess calories; E11.9 Type 2 diabetes mellitus without complications; E78.5 Hyperlipidemia, unspecified; I25.10 Atherosclerotic heart disease of native coronary artery without angina pectoris; Z95.5 Presence of coronary angioplasty implant and graft; Z88.5 Allergy status to narcotic agent; Z88.8 Allergy status to other drugs, medicaments and biological substances; Z79.899 Other long term (current) drug therapy; Z79.82 Long term (current) use of aspirin; Z87.442 Personal history of urinary calculi; Z79.02 Long term (current) use of antithrombotics/antiplatelets; Z79.51 Long term (current) use of inhaled steroids; Z86.73 Personal history of transient ischemic attack (TIA), and cerebral infarction without residual deficits; Z82.49 Family history of ischemic heart disease and other diseases of the circulatory system; Z83.3 Family history of diabetes mellitus; Z82.0 Family history of epilepsy and other diseases of the nervous system; I25.2 Old myocardial infarction; Z82.1 Family history of blindness and visual loss; Z82.3 Family history of stroke; Z95.1 Presence of aortocoronary bypass graft
CPT/HCPCS: 36415; 76775; 80048; 80053; 80061; 81001; 82270; 84443; 84484; 85014; 85018; 85025; 87086; 96365; G0378

== ENCOUNTER 2023-08-31 07:43 | Inpatient (IN) | payer MEDICARE ==
[~2023-08-31] VITALS: Ht 180.3 cm; Wt 126.9 kg
[~2023-08-31 07:43] MED LIST changes: +CIP500T PO
[2023-08-31 09:26] LABS: Basophils # (auto) 0 10 ^3/uL (0-0.2); Basophils % (auto) 0.2 % (0.0-2.0); Eosinophils # (auto) 0 10 ^3/uL (0-0.8); Eosinophils % (auto) 0.1 % (0.0-7.0); Hematocrit 42.1 % (41.0-53.0); Hemoglobin 13.5 g/dL (13.5-17.5); Lymphocytes % (auto) 6.8 % (10.0-50.0); Mean Corpuscular Hemoglobin 28.4 pg (28.0-32.0); Mean Corpuscular Hgb Conc. 32.1 g/dL (32.0-36.0); Mean Corpuscular Volume 88.5 fL (80.0-100.0); Monocytes # (auto) 0.9 10 ^3/uL (0-1.3); Monocytes % (auto) 5.9 % (0.0-12.0); Neutrophils # (auto) 12.6 10 ^3/uL (1.6-8.6); Red Blood Cells 4.76 10^6/uL (4.5-5.90); Red Cell Distribution Width 16.6 % (11.8-14.3); White Blood Cell 14.5 10^3/uL (4.4-10.8)
[2023-08-31 09:44] LABS: Alanine Aminotransferase 22 U/L (7-40); Alkaline Phosphatase 119 U/L (46-116); Anion Gap 4 (5-15); Aspartate Aminotransferase 23 U/L (13-40); BUN/Creatinine Ratio 15.9 (10.0-20.0); Bilirubin, Total 0.4 mg/dL (0.2-1.0); Blood Urea Nitrogen 25 mg/dL (9-23); Calcium 9.2 mg/dL (8.5-10.1); Carbon Dioxide 26 mmol/L (20-30); Chloride 109 mmol/L (98-107); Glucose 126 mg/dL (74-106); Potassium 4.2 mmol/L (3.5-5.1); Sodium 139 mmol/L (136-145)
[2023-08-31 09:45] LABS: Total Protein 6.3 g/dL (5.7-8.2)
[2023-08-31] MEDS: ONDANSETRON HCL 4 MG/2 ML VIAL IV ONE (09:48)
[2023-08-31] MEDS: MORPHINE SULFATE 4 MG/ML SYR/VIAL IV ONE (09:49)
[2023-08-31 11:25] LABS: Urine Bacteria None Seen /hpf (None Seen)
[2023-08-31 11:41] LABS: Lipase 27 U/L (12-53)
[2023-08-31 11:42] LABS: Urine Blood 3+ /uL (Negative); Urine Clarity Turbid (Clear); Urine Color Light-Yellow (Yellow); Urine Protein, UAD TRACE (Negative); Urine Urobilinogen Normal (Negative); Urine WBC 11 /hpf (0 - 3)
[2023-08-31] MEDS: HYDROmorphone HCL 2 MG/ML VL/or syr IV ONE (12:11)
[2023-08-31] MEDS ORDERED: ONDANSETRON HCL 4 MG/2 ML VIAL IV PRN (12:15)
[2023-08-31] MEDS ORDERED: DOCUSATE SOD 100 MG CAP PO PRN (12:15)
[2023-08-31] MEDS: cefTRIAXone 1GM/50ML D5W 50 ML IV ONE (13:26)
[2023-08-31] MEDS: SODIUM CHLORIDE 0.9% 1,000 ML IV SCH (13:26)
[2023-08-31 15:06] VITALS: BP 133/82; PULSE 79; RESP 16; TEMP 98.2; O2SAT 92
[2023-08-31] MEDS: TAMSULOSIN HYDROCHLORIDE 0.4 MG CAP PO ONE (15:26)
[2023-08-31 17:21] VITALS: BP 135/64; PULSE 80; RESP 16; TEMP 97.9; O2SAT 95
[2023-08-31 18:59] LABS: Creatinine, Urine 183.47 mg/dL (30.0-125.0)
[2023-08-31 20:00] VITALS: PULSE 89; RESP 20; O2SAT 93
[2023-08-31] MEDS: MORPHINE SULFATE INJ 2 MG/ml SYRG IV PRN (20:05)
[2023-08-31 21:00] VITALS: BP 104/59; PULSE 89; RESP 20; TEMP 97.8; O2SAT 93
[2023-08-31] MEDS: MONTELUKAST SODIUM 10 MG TAB PO SCH (21:22)
[2023-08-31] MEDS: ATORVASTATIN 20 MG TAB PO SCH (21:22)
[2023-08-31] MEDS: CIPROFLOXACIN 400MG/200ML 200 ML IV SCH (21:23)
[2023-09-01 01:00] VITALS: BP 109/61; PULSE 86; RESP 20; TEMP 98; O2SAT 91
[2023-09-01 05:00] VITALS: BP 116/67; PULSE 74; RESP 20; TEMP 97.7; O2SAT 93
[2023-09-01 07:04] LABS: Basophils # (auto) 0 10 ^3/uL (0-0.2); Basophils % (auto) 0.3 % (0.0-2.0); Eosinophils # (auto) 0.2 10 ^3/uL (0-0.8); Eosinophils % (auto) 2.9 % (0.0-7.0); Hematocrit 35.8 % (41.0-53.0); Lymphocytes # (auto) 1.2 10 ^3/uL (0.4-5.4); Lymphocytes % (auto) 15.6 % (10.0-50.0); Mean Corpuscular Hemoglobin 29.4 pg (28.0-32.0); Mean Corpuscular Hgb Conc. 33.5 g/dL (32.0-36.0); Mean Corpuscular Volume 87.9 fL (80.0-100.0); Monocytes # (auto) 0.7 10 ^3/uL (0-1.3); Monocytes % (auto) 8.8 % (0.0-12.0); Neutrophils # (auto) 5.6 10 ^3/uL (1.6-8.6); Neutrophils % (auto) 72.4 % (37.0-80.0); Nucleated Red Blood Cells % 0.1 %; Red Blood Cells 4.07 10^6/uL (4.5-5.90); Red Cell Distribution Width 16.3 % (11.8-14.3); White Blood Cell 7.8 10^3/uL (4.4-10.8)
[2023-09-01 07:19] LABS: Alanine Aminotransferase 17 U/L (7-40); Albumin 3.5 g/dL (3.2-4.8); Alkaline Phosphatase 101 U/L (46-116); Anion Gap 1 (5-15); Aspartate Aminotransferase 13 U/L (13-40); BUN/Creatinine Ratio 11.2 (10.0-20.0); Bilirubin, Total 0.6 mg/dL (0.2-1.0); Blood Urea Nitrogen 15 mg/dL (9-23); Calcium 8.4 mg/dL (8.5-10.1); Carbon Dioxide 31 mmol/L (20-30); Chloride 109 mmol/L (98-107); Glucose 106 mg/dL (74-106); Potassium 3.6 mmol/L (3.5-5.1); Sodium 141 mmol/L (136-145); Total Protein 5.6 g/dL (5.7-8.2)
[2023-09-01 08:15] VITALS: PULSE 81; RESP 16; O2SAT 96
[2023-09-01 09:00] VITALS: BP 123/74; PULSE 81; RESP 16; TEMP 97.8; O2SAT 96
[2023-09-01] MEDS ORDERED: cefTRIAXone 1GM/50ML D5W 50 ML IV SCH (09:00)
[2023-09-01] MEDS: ASPirin-EC 81 mg tab PO SCH (09:13)
[2023-09-01] MEDS: PANTOPRAZOLE 40 MG TAB PO SCH (09:13)
[2023-09-01] MEDS: CLOPIDOGREL BISULFATE 75 MG TAB PO SCH (09:14)
[2023-09-01] MEDS ORDERED: METOPROLOL SUCCINATE XL 50 MG TAB PO SCH (10:00)
[2023-09-01 13:00] VITALS: BP 131/66; PULSE 76; RESP 17; TEMP 98; O2SAT 95
[2023-09-01] MEDS ORDERED: TAMS-35 PO (15:04)
[2023-09-01 17:00] VITALS: BP 128/50; PULSE 89; RESP 17; TEMP 98.6; O2SAT 94
[2023-09-01] MEDS ORDERED: TAMSULOSIN HYDROCHLORIDE 0.4 MG CAP PO SCH (18:00)
== END 2023-09-01 16:55 | disposition home or self-care (01) | DRG 694 ==
LOC: ER 07:43 → OVERFLOW 12:50 → EAST 14:41
PROVIDERS: ADMIT Nurse Practitioner Family; ATTEND Internal Medicine
DX: N13.2 Hydronephrosis with renal and ureteral calculous obstruction (principal); D72.829 Elevated white blood cell count, unspecified; N17.9 Acute kidney failure, unspecified; I10 Essential (primary) hypertension; E78.5 Hyperlipidemia, unspecified; I25.10 Atherosclerotic heart disease of native coronary artery without angina pectoris; R31.9 Hematuria, unspecified; Z88.5 Allergy status to narcotic agent; Z91.048 Other nonmedicinal substance allergy status; I25.2 Old myocardial infarction; Z87.442 Personal history of urinary calculi; Z95.5 Presence of coronary angioplasty implant and graft; Z90.49 Acquired absence of other specified parts of digestive tract; N39.0 Urinary tract infection, site not specified
CPT/HCPCS: 36415; 74176; 80053; 81001; 82570; 83605; 83690; 84300; 84484; 85025; 87040; 87081; 87086; 96365; 96375; G0378; J2405